=== PATIENT | male | born 1975 | race Caucasian/White ===

== ENCOUNTER → 2022-02-01 | Outpatient (CLI) | payer MEDICARE | LOC: HEART 5 15:20 | DX: I25.10 Atherosclerotic heart disease of native coronary artery without angina pectoris (principal); R60.9 Edema, unspecified; I51.89 Other ill-defined heart diseases; I70.0 Atherosclerosis of aorta | CPT/HCPCS: 93306 ==

== ENCOUNTER → 2022-03-08 | Outpatient (CLI) | payer MEDICARE | LOC: HEART 5 03-01 09:00 | DX: R29.898 Other symptoms and signs involving the musculoskeletal system (principal); I73.9 Peripheral vascular disease, unspecified ==

== ENCOUNTER → 2022-04-05 | Outpatient (CLI) | payer MEDICARE | LOC: US 03-28 10:15 | DX: I73.9 Peripheral vascular disease, unspecified (principal) | CPT/HCPCS: 93925 ==